=== PATIENT | male | born 1965 | race Caucasian/White ===

== ENCOUNTER 2018-03-19 14:26 | Emergency (ER) | payer SELFPAY ==
[2018-03-19] MEDS: ONDANSETRON (ODT) 4 MG TAB ODT ×2 (15:40→16:12)
[2018-03-19] MEDS: DEXAMETHASONE 10 MG/ML 1 ML INJ IM (15:41)
[2018-03-19] MEDS: ALBUTEROL 0.083% (NEB) 2.5 MG/3 ML AMP HHN (16:03)
[2018-03-19] MEDS: ALBUTEROL/IPRATROPIUM (NEB) 3 ML AMP HHN (16:05)
[2018-03-19] MEDS: IPRATROPIUM (NEB) 0.5 MG/2.5 ML AMP NEB (16:43)
[2018-03-19] MEDS: ALBUTEROL 0.083% (NEB) 2.5 MG/3 ML AMP NEB (16:43)
== END 2018-03-19 17:06 | disposition home or self-care (01) ==
LOC: FTE 14:26
DX: J40 Bronchitis, not specified as acute or chronic (principal); T36.3X5A Adverse effect of macrolides, initial encounter
CPT/HCPCS: 94640; 94664; 96372; 99285-25